=== PATIENT | female | born 1985 | race American Indian/Alaskan Native ===

== ENCOUNTER 2021-04-27 20:34 | Emergency (ER) | payer OTHER ==
[2021-04-27] MEDS ORDERED: ONDANSETRON 4 MG ODT TAB PO ONE (22:05)
[2021-04-27] MEDS ORDERED: HYDROcodone/ACETAMINOPHEN 5-325 MG TAB PO ONE (22:05)
[2021-04-27] MEDS ORDERED: IBUPROFEN 600 MG TAB PO ONE (22:05)
--- NOTE | 2021-04-27 22:41 | Emergency Department Report ---
ED Fall HPI - General Chief Complaint: Fall Stated Complaint: FALL/HEAD/FACIAL INJURY/LOC Source: patient Mode of arrival: Ambulatory - History of Present Illness Initial Comments: Patient is a 35-year-old -[place] female with no past medical history who presents to the ED with complaint of acute onset persistent severe neck pain, facial and lower lip pain with intermittent nosebleed and headache after she slipped off a couch at home and landed on the wooden floor on her face 24 hours ago. Patient states that the pain has been worsening and that she keeps getting intermittent nosebleed with sneezing or when she blows her nose. Patient also states that she is unable perform any active range of motion in the neck because of severe pain. Patient states that she is not up-to-date with her tetanus vaccination but prefers not to get any vaccinations. Patient denies loss of consciousness, dizziness, syncope, seizures, change in vision, chest pain or shortness of breath, back pain, numbness and tingling or weakness of upper and lower extremities bilaterally. MD Complaint: fall, other (Facial pain, intermittent nosebleed, neck pain and headache) -: Sudden, hour(s) (24) Fall From: chair When Fall Occurred: 24 hours [employer] Fall Witnessed: yes, by family Place Fall Occurred: home Loss of Consciousness: none Prolonged Down Time?: no Symptoms Prior to Fall: none Location: head, face, mouth (Lower lip laceration with swelling), neck Severity: severe Severity scale (0 -10): 8 Quality: sharp, aching Context: tripped/slipped (Slipped and fell off the couch and landed on her face on a wooden floor) Associated Symptoms: headache, neck pain. denies: numbness, chest paint, shortness of breath, abdominal pain, lightheaded, vertigo, confusion - Related Data Previous Rx's Medication Instructions Recorded Last Taken Type Ibuprofen [Motrin] 800 mg PO Q8HR PRN #30 tablet 04/27/21 Unknown Rx cephALEXin [Keflex] 500 mg PO Q8HR #30 cap 04/27/21 Unknown Rx Allergies Allergy/AdvReac Type Severity Reaction Status Date / Time No Known Allergies Allergy Unverified 04/27/21 21:59 ED Review of Systems ROS: Stated complaint: FALL/HEAD/FACIAL INJURY/LOC Other details as noted in HPI Constitutional: denies: chills, fever Eyes: denies: eye pain, eye discharge, vision change ENT: epistaxis, other (Facial pain; lower lip laceration with swelling). denies: ear pain, throat pain Respiratory: denies: cough, shortness of breath, wheezing Cardiovascular: denies: chest pain, palpitations Endocrine: no symptoms reported Gastrointestinal: denies: abdominal pain, nausea, diarrhea Genitourinary: denies: urgency, dysuria, discharge Musculoskeletal: arthralgia (Neck pain). denies: back pain, joint swelling Skin: denies: rash, lesions Neurological: headache. denies: weakness, paresthesias Psychiatric: denies: anxiety, depression Hematological/Lymphatic: denies: easy bleeding, easy bruising ED Past Medical Hx - Medications Home Medications: Home Medications Medication Instructions Recorded Confirmed Last Taken Type Ibuprofen [Motrin] 800 mg PO Q8HR PRN #30 tablet 04/27/21 Unknown Rx cephALEXin [Keflex] 500 mg PO Q8HR #30 cap 04/27/21 Unknown Rx ED Physical Exam - General Limitations: No Limitations General appearance: alert, in no apparent distress - Head Head exam: Present: other (Palpable bilateral zygomatic and nasal bridge tenderness) - Eye Eye exam: Present: normal appearance, PERRL, EOMI Pupils: Present: normal accommodation - ENT ENT exam: Present: mucous membranes moist, other (Swollen, tender lower lip laceration; bilateral blood clots on nasal passages) - Neck Neck exam: Present: normal inspection, tenderness (Palpable cervical paraspinal musculoskeletal tenderness with limited range of motion due to pain). Absent: full ROM (Limited range of motion of neck due to pain) - Respiratory Respiratory exam: Present: normal lung sounds bilaterally. Absent: respiratory distress, wheezes, rales, rhonchi, chest wall tenderness, accessory muscle use, decreased breath sounds, prolonged expiratory - Cardiovascular Cardiovascular Exam: Present: normal rhythm, tachycardia, normal heart sounds. Absent: systolic murmur, diastolic murmur, rubs, gallop - GI/Abdominal GI/Abdominal exam: Present: soft, normal bowel sounds. Absent: tenderness, guarding, rebound, hyperactive bowel sounds, hypoactive bowel sounds, mass - Extremities Exam Extremities exam: Present: normal inspection, full ROM, normal capillary refill - Back Exam Back exam: Present: normal inspection, full ROM. Absent: tenderness, CVA tenderness (R), CVA tenderness (L), muscle spasm, paraspinal tenderness, vertebral tenderness - Neurological Exam Neurological exam: Present: alert, oriented X3, CN II-XII intact, normal gait, reflexes normal - Psychiatric Psychiatric exam: Present: normal affect, normal mood, anxious - Skin Skin exam: Present: warm, dry, intact, normal color. Absent: rash ED Course Vital Signs 04/27/21 04/28/21 21:28 02:28 Temperature 99.0 F Pulse Rate 109 H 88 Respiratory 16 12 Rate Blood Pressure 138/90 146/80 [Left] O2 Sat by Pulse 100 100 Oximetry ED Medical Decision Making - Radiology Data Radiology results: report reviewed, image reviewed [facility] [address] [place] [address] Cat Scan Report Signed Patient: MARY LOU FLORES MR#: [id number] : 1985 Acct:[id number] Age/Sex: 35 / F ADM Date: 04/27/21 Loc: ED Attending Dr: Ordering Physician: ADELA VIVAR Date of Service: 04/27/21 Procedure(s): CT facial bones wo con Accession Number(s): [id number] cc: ADELA VIVAR CT HEAD WITHOUT CONTRAST INDICATION: FACIAL CONTUSION: PAIN TECHNIQUE: All CT scans at this location are performed using CT dose reduction for ALARA by means of automated exposure control. COMPARISON: None available. NOTE: Mild motion artifact is seen. FINDINGS: BRAIN: No hemorrhage or mass effect are seen. No evidence of acute infarction is noted. ORBITS: Normal as visualized. SOFT TISSUES OF HEAD: Normal. CALVARIUM: Normal. VISUALIZED PARANASAL SINUSES AND MASTOID AIR CELLS: Clear. ADDITIONAL FINDINGS: None. IMPRESSION: No acute intracranial abnormality. CT FACE HISTORY: FACIAL CONTUSION: PAIN COMPARISON: None. TECHNIQUE: Axial images of the face were obtained. Coronal reformats were generated. All CT scans at this location are performed using CT dose reduction for ALARA by means of automated exposure control. CONTRAST: None. FINDINGS: Facial soft tissues: No significant abnormalities. Facial bones: No fracture or other significant abnormality. Paranasal sinuses: Minimal ethmoid and left maxillary mucosal thickening is seen. No air-fluid levels are noted. Orbits: No significant abnormality. Visualized images of the intracranial space: No significant abnormality. Additional findings: None. IMPRESSION: No significant facial abnormality. CT CERVICAL SPINE WITHOUT CONTRAST INDICATION: FACIAL CONTUSION: PAIN TECHNIQUE: All CT scans at this location are performed using CT dose reduction for ALARA by means of automated exposure control. Axial CT images were obtained through the cervical spine. Sagittal and coronal reformatted images were produced. COMPARISON: None available. Cervical spine findings: No fractures or subluxations are seen. Mild degenerative changes and disc space narrowing are seen at C5-6. No obvious disc herniation is noted. Additional findings: None. IMPRESSION: No significant acute findings. Signer Name: Jeremias Esquivel MD Signed: 04/28/2021 1:30 AM Workstation Name: [id number] Transcribed By: GJ Dictated By: Jeremias Esquivel MD Electronically Authenticated By: Jeremias Esquivel MD Signed Date/Time: 04/28/21129 DD/ 0 TD/TT: - Medical Decision Making This is a 35-year-old -[place] female with no past medical history who presents to the ED with complaint of acute onset persistent severe neck pain, facial and lower lip pain with intermittent nosebleed and headache after she slipped off a couch at home and landed on the wooden floor on her face 24 hours ago. Patient states that the pain has been worsening and that she keeps getting intermittent nosebleed with sneezing or when she blows her nose. Patient also states that she is unable perform any active range of motion in the neck because of severe pain. Patient states that she is not up-to-date with her tetanus vaccination but prefers not to get any vaccinations. In the ED, patient is alert and oriented x3 and is not in any distress but anxious, tachycardic and in triage. Patient however appears to be in pain. Patient was treated for pain in the ED. Patient declined any booster tetanus vaccination in the ED. the C- spine CT scan without contrast showed no acute cervical disc fractures or subluxations. The head CT scan without contrast showed no acute intracranial abnormalities or hemorrhage. The facial CT scan without contrast showed no acute facial bone fractures but minimal ethmoid and left maxillary mucosal thickening consistent with chronic sinusitis. On reevaluation, patient's pain is well controlled with medications. Patient was discharged home on medications and advised to follow-up with her her primary care physician in 5 to 7 days for reevaluation or return to the ED immediately if symptoms get worse. - Differential Diagnosis Facial bone fracture; scalp contusion; cervical sprain; facial laceration Critical care attestation.: If time is entered above; I have spent that time in minutes in the direct care of this critically ill patient, excluding procedure time. ED Disposition Clinical Impression: Contusion of face, scalp and neck Qualifiers: Encounter type: initial encounter Qualified Code(s): S00.83XA - Contusion of other part of head, initial encounter Infected laceration of lip Qualifiers: Encounter type: initial encounter Qualified Code(s): S01.511A - Laceration without foreign body of lip, initial encounter Chronic sinusitis, unspecified Qualifiers: Sinusitis location: pansinusitis Qualified Code(s): J32.4 - Chronic pansinusitis Disposition: 01 HOME / SELF CARE / HOMELESS Is pt being admited?: No Does the pt Need Aspirin: No Condition: Stable Instructions: Sinusitis, Adult, [id number], Tension Headache, Adult, [id number], Facial or Scalp Contusion, [id number], Facial Laceration, [id number] Additional Instructions: The head CT scan without contrast showed no acute intracranial abnormalities or hemorrhage. It however showed minimal ethmoid and left maxillary mucosal thickening. The facial CT scan without contrast showed no acute facial bone fractures or subluxations. The C-spine CT scan without contrast showed no acute cervical disc fractures or subluxations. Therefore take medication with food, drink plenty of fluids and follow-up with your primary care physician in 7 to 10 days for reevaluation. Return to the ED immediately if symptoms get worse. Prescriptions: cephALEXin [Keflex] 500 mg PO Q8HR #30 cap Ibuprofen [Motrin] 800 mg PO Q8HR PRN #30 tablet PRN Reason: Pain , Severe (7-10) Referrals: [facility] [Provider Group] - 7-10 days Forms: Work/School Release Form(ED) Time of Disposition: 22:42 Print Language: LAO
--- NOTE | 2021-04-28 01:34 | Cat Scan Report ---
CT HEAD WITHOUT CONTRAST INDICATION: FACIAL CONTUSION: PAIN TECHNIQUE: All CT scans at this location are performed using CT dose reduction for ALARA by means of automated exposure control. COMPARISON: None available. NOTE: Mild motion artifact is seen. FINDINGS: BRAIN: No hemorrhage or mass effect are seen. No evidence of acute infarction is noted. ORBITS: Normal as visualized. SOFT TISSUES OF HEAD: Normal. CALVARIUM: Normal. VISUALIZED PARANASAL SINUSES AND MASTOID AIR CELLS: Clear. ADDITIONAL FINDINGS: None. IMPRESSION: No acute intracranial abnormality. CT FACE HISTORY: FACIAL CONTUSION: PAIN COMPARISON: None. TECHNIQUE: Axial images of the face were obtained. Coronal reformats were generated. All CT scans at this location are performed using CT dose reduction for ALARA by means of automated exposure control . CONTRAST: None. FINDINGS: Facial soft tissues: No significant abnormalities. Facial bones: No fracture or other significant abnormality. Paranasal sinuses: Minimal ethmoid and left maxillary mucosal thickening is seen. No air-fluid levels are noted. Orbits: No significant abnormality. Visualized images of the intracranial space: No significant abnormality. Additional findings: None. IMPRESSION: No significant facial abnormality. CT CERVICAL SPINE WITHOUT CONTRAST INDICATION: FACIAL CONTUSION: PAIN TECHNIQUE: All CT scans at this location are performed using CT dose reduction for ALARA by means of automated exposure control. Axial CT images were obtained through the cervical spine. Sagittal and co be reformatted images were produced. COMPARISON: None available. Cervical spine findings: No fractures or subluxations are seen. Mild degenerative changes and disc sp emiliana narrowing are seen at C5-6. No obvious disc herniation is noted. Additional findings: None. IMPRESSION: No significant acute findings. Signer Name: Jeremias Esquivel MD Signed: 04/28/2021 1:30 AM Workstation Name: [id number]
[2021-04-28 02:34] VITALS: BP 146/80
== END 2021-04-28 02:35 | disposition home or self-care (01) ==
LOC: ED 20:34
DX: S01.511A Laceration without foreign body of lip, initial encounter (principal); J32.4 Chronic pansinusitis; M54.2 Cervicalgia; Z79.899 Other long term (current) drug therapy; W18.39XA Other fall on same level, initial encounter; Y93.89 Activity, other specified; Y92.89 Other specified places as the place of occurrence of the external cause; Y99.8 Other external cause status
CPT/HCPCS: 70450; 70486; 72125; 99283; Q0162